=== PATIENT | male | born 1970 | race Caucasian/White ===

== ENCOUNTER 2016-10-28 10:12 | Inpatient (IN) | payer OTHER ==
--- NOTE | ~2016-10-28 | DS ---
Discharge Summary [place] [id number] [facility] [place]. [address] NAME: ILDEFONSO KO : 72 STATUS : DIS IN PAT#: [id number] AGE: 46 ADM/REG DATE : 10/28/16 MR#: [id number] REPORT SERV DATE: 11/02/16 DICTATED BY: JUSTICE MORSE DATE: 11/01/16 REPORT STATUS : Draft TRANSCRIBED BY: MODDanny DATE: 11/01/16 ADMISSION DATE: 10/28/2016 DISCHARGE DATE: 11/01/2016 PROCEDURES DONE: 1. 10/28/2016 chest x-ray: Expiratory examination with bibasilar atelectasis. No acute cardiopulmonary disease. 2. 10/28/2016, CT of abdomen and pelvis without contrast: Multifocal pleural-based small round infiltrates to the left lower lobe discussed in previous CTA of chest, likely multifocal bronchopneumonia, septic emboli. Possible small peripheral areas around it with atelectasis. Less likely pulmonary infarcts, as well as no CTA evidence of pulmonary artery embolism identified. This included subsegmental atelectasis, both lower lobes. Large simple cyst upper lobe, kidney. 3. 10/28/2016 CTA chest: Peripheral left upper lobe and left lower lobe foci of consolidation from multifocal pneumonia. Consider septic emboli. Eosinophilic pneumonia. Normal aorta. No evidence of pulmonary embolus. 4. 10/29/2016 chest x-ray: Shallow inspiration with minimal bilateral atelectasis. No acute cardiopulmonary. REASON FOR ADMISSION: Back pain. HISTORY OF HOSPITAL STAY: A 46-year-old white male with past medical history of hypertension, hyperlipidemia, questionable Down syndrome, presenting with back pain of unknown duration. The patient was admitted for further evaluation of back pain. The patient underwent CTA of chest, which showed bilateral pneumonia, left upper lobe and left lower lobe. This most likely represents atypical community-acquired pneumonia, less likely septic emboli which was mentioned in the CTA of chest as well as CT of abdomen and pelvis. The patient was given Rocephin and Zithromax during his hospital stay. The patient did well with the antibiotics. The patient did have dyspnea on inspiration. The patient was given Mucomyst, which brought up a lot of sputum production. Initially, avila to green and eventually became clear with Mucomyst as well as antibiotics. The patient felt much better post treatment. The patient will be discharged with Levaquin and Florastor. DISPOSITION: The patient is feeling fine, no complaint. ACTIVITY: As tolerated. DIET: Cardiac. INSTRUCTIONS UPON DISCHARGE: The patient is to follow up with PMD within one weeks' time. MEDICATION UPON DISCHARGE: 1. Levaquin 750 p.o. daily x5. 2. Florastor 250 mg p.o. b.i.d., dispensed. 3. Zocor 20 mg p.o. at bedtime. 4. Hydrochlorothiazide 25 mg daily. Discharge Summary [address] [address] NAME: ILDEFONSO KO : 72 STATUS : DIS IN PAT#: [id number] AGE: 46 ADM/REG DATE : 10/28/16 MR#: [id number] REPORT SERV DATE: 11/02/16 DICTATED BY: JUSTICE MORSE DATE: 11/01/16 REPORT STATUS : Draft TRANSCRIBED BY: LILIANA DATE: 11/01/16 5. Lisinopril 40 mg daily. 6. Naproxen 500 mg p.o. b.i.d. p.r.n. 7. Artificial true one drop ophthalmic b.i.d. DIAGNOSES UPON DISCHARGE: 1. Back pain secondary to left upper lobe pneumonia and left lower lobe pneumonia. 2. Left upper lobe pneumonia and left lower lobe pneumonia. 3. Acute kidney injury secondary to chronic kidney disease. 4. Questionable dialysis. 5. Hyperlipidemia. 6. Hypertension. FBRaúl/LILIANA Justice Morse MD / [id number] CC: Justice Morse MD
--- NOTE | ~2016-10-28 | HP ---
History And Physical [place] [id number] [place]. [address] NAME: ILDEFONSO KO : 72 STATUS : ADM IN [facility]#: [id number] AGE: 46 ADM/REG DATE : 10/28/16 MR#: [id number] REPORT SERV DATE: 10/28/16 DICTATED BY: ABDULLAHI MATUTE DATE: 10/28/16 REPORT STATUS : Draft TRANSCRIBED BY: MODL DATE: 10/28/16 DATE OF ADMISSION: 10/28/2016 IDENTIFYING DATA: A 46-year-old white male, whose PCP is Ashlee Hogan M.D. CHIEF COMPLAINT: Back pain. HISTORY OF PRESENT ILLNESS: This history of present illness is obtained by talking directly to the patient as well as his parents at the bedside, as well as talking to the ER provider and the ER nurse and reviewing the ER chart as well as [employer]. This patient is polite, but not able to give much meaningful information, he gives very short answers. He visually appears like he may have Down syndrome. His parents are at bedside, and he looks to them to answer or number the questions. He initially told me that two days ago, he started having pain in his left flank, and he pointed to his area that is below the scapula on the left. As the history-taking went on, it sounds like he has been going to his PCP for about two months for pain in that same area and was given naproxen. It is unclear if it was helping at all, but at least at this time, it did not help enough, so he came to the emergency room. He was found to have an elevated white blood count, elevated creatinine, and some atypical infiltrates on CAT scan, so we were asked to see him and admit him. REVIEW OF SYSTEMS: On review of systems, he admits cough that is new. He also has significant increase in his pain with deep breathing or coughing. He is not producing any sputum. He denies any hemoptysis. His pain appears to get worse sometimes with movement. He and family deny any injury. They deny any change in activities. He has been having chills. Has not noticed any fever. On review of systems, he has had some shortness of breath. He has abdominal pain over the last 24 hours, but he is very vague, cannot really give me any characteristics of it. He cannot localize it. He cannot tell me what makes it better, what makes it worse. His mom says he has been eating less. She states he had some diarrhea about five or six days ago. He also reportedly had a little bit of blood when he wiped with a tissue paper, but no bloody stool. He has maybe one or two times per night nocturia. He denies fever, hemoptysis, nausea, vomiting, melena, dysuria, urinary hesitancy, edema, rash, or headaches. ALLERGIES: NO KNOWN DRUG ALLERGIES. PAST MEDICAL HISTORY: He and family deny any history of diabetes, asthma, COPD, pneumonia in the past, heart disease, stroke, seizure, peptic ulcer, biliary tract disease, liver disease, thyroid disease, cancer, or sleep apnea. He has a history of hypertension, hyperlipidemia, and again to me, he appears phenotypically to have Down's appearance. History And Physical [address] [address] NAME: ILDEFONSO KO : 72 STATUS : ADM IN [facility]#: [id number] AGE: 46 ADM/REG DATE : 10/28/16 MR#: [id number] REPORT SERV DATE: 10/28/16 DICTATED BY: ABDULLAHI MATUTE DATE: 10/28/16 REPORT STATUS : Draft TRANSCRIBED BY: LILIANA DATE: 10/28/16 HOME MEDICATION: Natural Tears p.r.n., hydrochlorothiazide 25 mg daily, lisinopril 40 mg daily, naproxen 500 mg b.i.d. p.r.n. pain, and Zocor 40 mg each bedtime. SURGICAL HISTORY: He had a previous right knee arthroscopic procedure for lateral meniscus repair and ACL reconstruction using a tibialis allograft on 06/01/[address] Rich Mckee. No other surgeries that he or family admit to. SOCIAL HISTORY: Denies tobacco or alcohol, present or past. He lives with his parents. 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 Father with colon cancer. I asked if the patient has ever had a colonoscopy, they said no. One sibling with fatty liver. DIAGNOSTIC DATA: Chest x-ray as a single portable film reveals a shallow inspiratory size. There is some haziness in the left lung base, this is per my interpretation. CTA of the chest ordered by the ER and performed before I saw the patient, revealed peripheral left upper lobe and left lower lobe focal consolidation suspicious for multifocal pneumonia. The radiologist suggested consideration for septic emboli and eosinophilic pneumonia. Aorta, normal. No evidence of pulmonary embolism. EKG done today at 1016 hours, reveals normal sinus rhythm and it appears to be a normal EKG to my interpretation. Sodium 132, potassium 4.1, chloride 97, CO2 is 27, BUN 24, creatinine 1.85, glucose 131, calcium 9.2. The rest of the CMP normal. Troponin less than 0.02. Lactic acid 1.4. White count is 17.6, hemoglobin 12.4, platelets 273,000. D-dimer elevated at 1.31. Urinalysis, clean catch normal. Urine drug screen positive only for the opiates, but they were given to him here in the ER. PHYSICAL EXAMINATION: VITAL SIGNS: Temp is 98, pulse 100, respirations 24, blood pressure 130/75, O2 saturation is 94% on room air. GENERAL: Well-developed male, who looks to me like he may have Down syndrome appearance. HEENT: Head is atraumatic. Pupils are equal, round, and reactive to light. Extraocular motions are intact. No scleral icterus noted. Ear canals and TMs, unremarkable. Normal external ears. No inflammatory changes noted. Nose, noninflamed externally. Septum midline. Nares patent. Mouth, there are no teeth, so I suspect he has had them all removed. There is no redness of the throat. No thrush. NECK: Supple. No lymph node or thyroid enlargement. The carotids have good pulses. No bruits. No jugular venous distention. LUNGS: Decreased breath sounds in the left base and left mid lung field. He has mildly increased respiratory effort. HEART: Regular rate and rhythm without murmur, gallop, click, or rub. ABDOMEN: Obese. Bowel sounds positive. Soft, nondistended. Mildly tender. Appears diffuse. Difficult to reproduce. No mass. No organomegaly. No bruits. EXTREMITIES: Warm, good pulses. No clubbing, no cyanosis, no edema. No actively inflamed skin or joints. NEUROLOGIC: He is alert. His speech is clear. He does not say much. He follows simple commands. His motor strength is 3/5 in all four extremities. No Babinski. No clonus History And Physical [address] [address] NAME: ILDEFONSO KO : 72 STATUS : ADM IN PAT#: [id number] AGE: 46 ADM/REG DATE : 10/28/16 MR#: [id number] REPORT SERV DATE: 10/28/16 DICTATED BY: ABDULLAHI MATUTE DATE: 10/28/16 REPORT STATUS : Draft TRANSCRIBED BY: MODL DATE: 10/28/16 noted. Cranial nerves 2 through 12 grossly normal. ASSESSMENT: 1. Pleuritic left-sided chest pain with chills, high white blood count. CTA showing small peripheral left upper and left lower lobe infiltrates, most likely represent atypical community-acquired pneumonia, less likely septic emboli. 2. Acute kidney injury versus chronic kidney disease. As we do not have any old values, this could come from the medicine he is on, including naproxen, hydrochlorothiazide, and lisinopril. 3. Mild hyponatremia and he appears euvolemic. 4. Anemia, that is normocytic. We have nothing to compare with. 5. Vague abdominal pain. He is a very poor historian. 6. Suspected Down syndrome. PLAN: 1. Admit to a telemetry bed. 2. Blood cultures have already been sent. Procalcitonin is ordered. Urine strep and Legionella antigens are ordered. We are going to place him on antibiotics, since we have already started with azithromycin and Rocephin. 3. Lactated Ringer's since he got CTA'd and he has elevated creatinine. 4. We are going to hold his lisinopril, hydrochlorothiazide, and naproxen. We will get a CT scan without contrast, abdomen and pelvis, and I have updated his parents at the bedside. JUAN CARLOS/LILIANA Abdullahi Matute M.D. / [id number] CC: Justice Morfin MD
--- NOTE | ~2016-10-28 | HP ---
History And Physical [place] [id number] [facility] [place] [address] NAME: ILDEFONSO KO : 72 STATUS : ADM IN [facility]#: [id number] AGE: 46 ADM/REG DATE : 10/28/16 MR#: [id number] REPORT SERV DATE: 10/29/16 DICTATED BY: ABDULLAHI MATUTE DATE: 10/28/16 REPORT STATUS : Draft TRANSCRIBED BY: MODL DATE: 10/28/16 DATE OF ADMISSION: 10/28/2016 ADDENDUM: Addendum to the history and physical. During the physical exam, this patient had horizontal and some rotational nystagmus noted. RS/LILIANA Abdullahi Matute M.D. / [id number] CC: Justice Morfin MD
[~2016-10-28 10:12] MED LIST: ADVIL PO
[2016-10-28 10:47] LABS: BASOPHILS 0.1 %; BASOPHILS ABSOLUTE 0.01 10/3/uL (0.0-0.16); EOSINOPHILS 0 %; ER CBC TAT 0 Hrs 08 Mins; HEMOGLOBIN 12.4 g/dL (13.6-17.8); IMMATURE GRANULOCYTES ABSOLUTE 0.18 10/3/uL (0.0-0.11); LYMPHOCYTES ABSOLUTE 1.93 10/3/uL (0.67-4.30); MEAN CORPUS HGB CONC 33.5 g/dL (32.0-36.0); MEAN CORPUSCULAR VOLUME 86.7 fL (80-100); MEAN PLATELET VOLUME 9.1 fL (9.2-13.0); MONOCYTES 7.2 %; MONOCYTES ABSOLUTE 1.27 10/3/uL (0.21-1.20); NEUTROPHILS 80.7 %; NEUTROPHILS ABSOLUTE 14.21 10/3/uL (2.02-8.40); PLATELET COUNT 273 10/3/uL (150-400); RBC DISTRIBUTION WIDTH 13.3 % (12.0-16.0); RED CELL COUNT 4.27 10/6/uL (4.7-6.1); WHITE BLOOD CELLS 17.6 10/3/uL (4.5-10.5)
[2016-10-28 10:48] LABS: MANUAL DIFF NO %
[2016-10-28 11:03] LABS: ALBUMIN 3.9 G/DL (3.5-5.0); ALKALINE PHOSPHATASE 80 U/L (45-117); BUN (BLOOD UREA NITROGEN) 24 MG/DL (6-23); CALCIUM, SERUM 9.2 MG/DL (8.5-10.4); CHLORIDE, SERUM 97 MMOL/L (96-112); CO2 (CARBON DIOXIDE) 27 MMOL/L (24-34); CREATININE 1.85 MG/DL (0.70-1.30); GFR AFRICAN AMERICAN 50 ML/MIN (>=60); GFR NON AFRICAN AMERICAN 43 ML/MIN (>=60); GLUCOSE, SERUM 131 MG/DL (60-99); POTASSIUM, SERUM 4.1 MMOL/L (3.5-5.3); SGOT(AST) 11 U/L (5-40); SGPT(ALT) 27 U/L (5-65); SODIUM, SERUM 132 MMOL/L (135-148); TOTAL BILIRUBIN 0.7 MG/DL (0-1.2); TOTAL PROTEIN 7.9 G/DL (6.0-8.5); TROPONIN I <0.02 NG/ML (<0.05)
[2016-10-28] MEDS ORDERED: HYDROCHLOROT25 MG PO (13:05)
[2016-10-28] MEDS ORDERED: LISINOPRIL40 MG PO (13:06)
[2016-10-28] MEDS ORDERED: ZOCOR20 PO (13:06)
[2016-10-28] MEDS ORDERED: NAP500 PO (13:06)
[2016-10-28] MEDS ORDERED: TEARS PURE OPH (13:07)
[2016-10-28 14:18] LABS: ASCORBIC ACID (UR NOT ORDER) NEG (NEG); BILIRUBIN, URINE NEGATIVE (NEG); ER URINALYSIS TAT 0 Hrs 08 Mins; KETONE, URINE NEGATIVE (NEG); LEUKOCYTE ESTERASE(NOT OR NEG (NEG); NITRITE (URINE) NEG (NEG); WBC (NOT ORDERED) (RFLEX) < 1 (0-5)
[2016-10-28 14:30] LABS: AMPHETAMINES (NOT ORD) NEG (NEG); BARBITURATES (NOT ORDERED NEG (NEG); BENZODIAZEPINES (NOT ORD) NEG (NEG); CANNABINOIDS (THC) NEG (NEG); COCAINE (NOT ORDERED) NEG (NEG); OPIATES POS (NEG); PHENCYCLIDINE(PCP) NEG (NEG)
[2016-10-28 14:31] LABS: TRICYCLICS NEG (NEG)
[2016-10-28 17:18] LABS: INTERNATIONAL NORMAL RATI 1.2 UNITS (-); PARTIAL THROMBO TIME 30.8 SEC (22.5-37.2)
[2016-10-29 05:53] LABS: BASOPHILS 0.1 %; BASOPHILS ABSOLUTE 0.01 10/3/uL (0.0-0.16); EOSINOPHILS 0.1 %; EOSINOPHILS ABSOLUTE 0.02 10/3/uL (0.0-0.53); IMMATURE GRANULOCYTES 0.5 %; IMMATURE GRANULOCYTES ABSOLUTE 0.07 10/3/uL (0.0-0.11); LYMPHOCYTES 14.8 %; LYMPHOCYTES ABSOLUTE 2.09 10/3/uL (0.67-4.30); MEAN CORPUS HGB CONC 33.4 g/dL (32.0-36.0); MEAN CORPUSCULAR HEMOGLOB 29.1 pg (26.0-34.0); MEAN PLATELET VOLUME 9.2 fL (9.2-13.0); MONOCYTES 8.3 %; MONOCYTES ABSOLUTE 1.17 10/3/uL (0.21-1.20); NEUTROPHILS 76.2 %; NEUTROPHILS ABSOLUTE 10.73 10/3/uL (2.02-8.40); PLATELET COUNT 271 10/3/uL (150-400); RBC DISTRIBUTION WIDTH 13.6 % (12.0-16.0); RED CELL COUNT 3.78 10/6/uL (4.7-6.1); WHITE BLOOD CELLS 14.1 10/3/uL (4.5-10.5)
[2016-10-29 05:55] LABS: CALCIUM, SERUM 8.9 MG/DL (8.5-10.4); CHLORIDE, SERUM 101 MMOL/L (96-112); CO2 (CARBON DIOXIDE) 26 MMOL/L (24-34); CREATININE 1.55 MG/DL (0.70-1.30); GFR AFRICAN AMERICAN 62 ML/MIN (>=60); GFR NON AFRICAN AMERICAN 53 ML/MIN (>=60); GLUCOSE, SERUM 113 MG/DL (60-99); POTASSIUM, SERUM 4.3 MMOL/L (3.5-5.3); SODIUM, SERUM 136 MMOL/L (135-148)
[2016-10-29 06:00] LABS: HEMATOCRIT 32.9 % (40.0-51.0); MANUAL DIFF NO %
[2016-10-29 06:01] LABS: BUN (BLOOD UREA NITROGEN) 19 MG/DL (6-23)
[2016-10-30 05:02] LABS: CALCIUM, SERUM 8.9 MG/DL (8.5-10.4); CHLORIDE, SERUM 100 MMOL/L (96-112); CO2 (CARBON DIOXIDE) 27 MMOL/L (24-34); CREATININE 1.32 MG/DL (0.70-1.30); GFR AFRICAN AMERICAN 75 ML/MIN (>=60); GFR NON AFRICAN AMERICAN 65 ML/MIN (>=60); GLUCOSE, SERUM 106 MG/DL (60-99); PHOSPHORUS, SERUM 2.7 MG/DL (2.5-4.5); SGOT(AST) 28 U/L (5-40); SGPT(ALT) 26 U/L (5-65); SODIUM, SERUM 137 MMOL/L (135-148); TOTAL BILIRUBIN 0.5 MG/DL (0-1.2); TOTAL PROTEIN 7.2 G/DL (6.0-8.5)
[2016-10-30 05:26] LABS: A/G RATIO 0.7 (0.7-1.9); ALKALINE PHOSPHATASE 101 U/L (45-117); BUN (BLOOD UREA NITROGEN) 15 MG/DL (6-23); GLOBULIN 4.2 G/DL (2.5-4.1)
[2016-10-30 05:27] LABS: BASOPHILS 0.2 %; BASOPHILS ABSOLUTE 0.02 10/3/uL (0.0-0.16); EOSINOPHILS 0.3 %; EOSINOPHILS ABSOLUTE 0.04 10/3/uL (0.0-0.53); HEMOGLOBIN 10.6 g/dL (13.6-17.8); IMMATURE GRANULOCYTES 0.7 %; IMMATURE GRANULOCYTES ABSOLUTE 0.08 10/3/uL (0.0-0.11); LYMPHOCYTES 19.1 %; LYMPHOCYTES ABSOLUTE 2.26 10/3/uL (0.67-4.30); MEAN CORPUS HGB CONC 33.1 g/dL (32.0-36.0); MEAN CORPUSCULAR HEMOGLOB 28.7 pg (26.0-34.0); MEAN CORPUSCULAR VOLUME 86.7 fL (80-100); MEAN PLATELET VOLUME 9.1 fL (9.2-13.0); MONOCYTES 9.7 %; MONOCYTES ABSOLUTE 1.15 10/3/uL (0.21-1.20); NEUTROPHILS ABSOLUTE 8.31 10/3/uL (2.02-8.40); PLATELET COUNT 315 10/3/uL (150-400); RBC DISTRIBUTION WIDTH 13.3 % (12.0-16.0); RED CELL COUNT 3.69 10/6/uL (4.7-6.1); WHITE BLOOD CELLS 11.9 10/3/uL (4.5-10.5)
[2016-10-30 05:31] LABS: MANUAL DIFF NO %
[2016-10-31 04:21] LABS: BASOPHILS 0.2 %; BASOPHILS ABSOLUTE 0.02 10/3/uL (0.0-0.16); EOSINOPHILS 0.6 %; EOSINOPHILS ABSOLUTE 0.07 10/3/uL (0.0-0.53); HEMOGLOBIN 10.3 g/dL (13.6-17.8); IMMATURE GRANULOCYTES 1.2 %; IMMATURE GRANULOCYTES ABSOLUTE 0.14 10/3/uL (0.0-0.11); LYMPHOCYTES 22.7 %; LYMPHOCYTES ABSOLUTE 2.59 10/3/uL (0.67-4.30); MEAN CORPUS HGB CONC 33.2 g/dL (32.0-36.0); MEAN CORPUSCULAR HEMOGLOB 28.9 pg (26.0-34.0); MEAN CORPUSCULAR VOLUME 87.1 fL (80-100); MEAN PLATELET VOLUME 8.8 fL (9.2-13.0); MONOCYTES ABSOLUTE 1.14 10/3/uL (0.21-1.20); NEUTROPHILS 65.3 %; NEUTROPHILS ABSOLUTE 7.43 10/3/uL (2.02-8.40); PLATELET COUNT 338 10/3/uL (150-400); RBC DISTRIBUTION WIDTH 13.4 % (12.0-16.0); RED CELL COUNT 3.56 10/6/uL (4.7-6.1); WHITE BLOOD CELLS 11.4 10/3/uL (4.5-10.5)
[2016-10-31 04:22] LABS: A/G RATIO 0.6 (0.7-1.9); ALBUMIN 2.8 G/DL (3.5-5.0); BUN (BLOOD UREA NITROGEN) 16 MG/DL (6-23); CALCIUM, SERUM 8.6 MG/DL (8.5-10.4); CHLORIDE, SERUM 99 MMOL/L (96-112); CO2 (CARBON DIOXIDE) 28 MMOL/L (24-34); CREATININE 1.24 MG/DL (0.70-1.30); GFR AFRICAN AMERICAN 81 ML/MIN (>=60); GFR NON AFRICAN AMERICAN 70 ML/MIN (>=60); GLOBULIN 4.4 G/DL (2.5-4.1); GLUCOSE, SERUM 109 MG/DL (60-99); MANUAL DIFF NO %; POTASSIUM, SERUM 4.1 MMOL/L (3.5-5.3); SGOT(AST) 56 U/L (5-40); SGPT(ALT) 57 U/L (5-65); SODIUM, SERUM 137 MMOL/L (135-148); TOTAL BILIRUBIN 0.4 MG/DL (0-1.2); TOTAL PROTEIN 7.2 G/DL (6.0-8.5)
[2016-10-31 04:23] LABS: ALKALINE PHOSPHATASE 135 U/L (45-117); PHOSPHORUS, SERUM 3.7 MG/DL (2.5-4.5)
[2016-11-01 05:08] LABS: BASOPHILS 0.2 %; BASOPHILS ABSOLUTE 0.02 10/3/uL (0.0-0.16); EOSINOPHILS 0.9 %; HEMATOCRIT 30.9 % (40.0-51.0); HEMOGLOBIN 10.6 g/dL (13.6-17.8); IMMATURE GRANULOCYTES 1.9 %; IMMATURE GRANULOCYTES ABSOLUTE 0.21 10/3/uL (0.0-0.11); LYMPHOCYTES 19.1 %; LYMPHOCYTES ABSOLUTE 2.15 10/3/uL (0.67-4.30); MEAN CORPUS HGB CONC 34.3 g/dL (32.0-36.0); MEAN CORPUSCULAR HEMOGLOB 29.7 pg (26.0-34.0); MEAN CORPUSCULAR VOLUME 86.6 fL (80-100); MEAN PLATELET VOLUME 8.9 fL (9.2-13.0); MONOCYTES 9.5 %; MONOCYTES ABSOLUTE 1.07 10/3/uL (0.21-1.20); NEUTROPHILS 68.4 %; NEUTROPHILS ABSOLUTE 7.73 10/3/uL (2.02-8.40); PLATELET COUNT 341 10/3/uL (150-400); RBC DISTRIBUTION WIDTH 13.5 % (12.0-16.0); RED CELL COUNT 3.57 10/6/uL (4.7-6.1); WHITE BLOOD CELLS 11.3 10/3/uL (4.5-10.5)
[2016-11-01 05:09] LABS: MANUAL DIFF NO %
[2016-11-01 05:11] LABS: ALBUMIN 2.7 G/DL (3.5-5.0); BUN (BLOOD UREA NITROGEN) 14 MG/DL (6-23); CALCIUM, SERUM 8.4 MG/DL (8.5-10.4); CHLORIDE, SERUM 102 MMOL/L (96-112); CO2 (CARBON DIOXIDE) 27 MMOL/L (24-34); CREATININE 1.15 MG/DL (0.70-1.30); GFR AFRICAN AMERICAN 89 ML/MIN (>=60); GFR NON AFRICAN AMERICAN 76 ML/MIN (>=60); GLUCOSE, SERUM 106 MG/DL (60-99); POTASSIUM, SERUM 4.4 MMOL/L (3.5-5.3); SODIUM, SERUM 138 MMOL/L (135-148)
[2016-11-01 06:40] LABS: PROCALCITONIN 3.47 ng/mL (<0.5)
[2016-11-01] MEDS ORDERED: LEVAQUIN750 MG PO (11:58)
[2016-11-01] MEDS ORDERED: FLORASTOR250 MG PO (11:59)
== END 2016-11-01 13:53 | disposition home or self-care (01) | DRG 871 ==
LOC: ER 10:12 → 7NO 15:14
PROVIDERS: Hospitalist; Nurse Practitioner Acute Care
DX: A41.9 Sepsis, unspecified organism (principal); J18.9 Pneumonia, unspecified organism; N17.9 Acute kidney failure, unspecified; E87.1 Hypo-osmolality and hyponatremia; N18.3 Chronic kidney disease, stage 3 (moderate); Q90.9 Down syndrome, unspecified; E78.5 Hyperlipidemia, unspecified; I12.9 Hypertensive chronic kidney disease with stage 1 through stage 4 chronic kidney disease, or unspecified chronic kidney disease; D64.9 Anemia, unspecified
CPT/HCPCS: 71010; 71020; 71275; 74176; 80048; 80053; 80069; 80305; 81001; 83605; 83735; 83880; 84100; 84145; 84484; 85025; 85379; 85610; 85730; 87040; 93005; 94640; 99285; A9270-GY; J0456; J0690; J1170; J2405; Q9967